=== PATIENT | male | born 1970 | race Caucasian/White ===

== ENCOUNTER 2016-06-10 09:52 | Inpatient (IN) | payer OTHER ==
[2016-06-10 10:49] VITALS: BMI 22.1
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
[2016-06-10] MEDS ORDERED: MAG HYDROX/AL HYDROX/SIMETH 30 ML UNIT-DOSE CUP PO PRN (15:21)
[2016-06-10] MEDS ORDERED: MENTHOL/PHENOL 1 EACH UD MM PRN (15:21)
[2016-06-10] MEDS ORDERED: P-EPHED 60MG/TRIPROLIDI 2.5MG TABLET PO PRN (15:21)
[2016-06-10] MEDS ORDERED: MAGNESIUM CITRATE 300 ML BOTTLE PO PRN (15:21)
[2016-06-10] MEDS ORDERED: hydrOXYzine PAMOATE 50 MG CAPSULE (FP) PO PRN (15:21)
[2016-06-10] MEDS ORDERED: MAGNESIUM HYDROX 2400MG/30ML ORAL SUSPENSION 30 ML CUP PO PRN (15:21)
[2016-06-10] MEDS ORDERED: NICOTINE POLACRILEX 4 MG GUM BC PRN (15:21)
[2016-06-10] MEDS ORDERED: ACETAMINOPHEN 325 MG TABLET (FP) PO PRN (15:21)
[2016-06-10] MEDS ORDERED: diphenhydrAMINE HCL 50 MG CAPSULE PO PRN (15:21)
[2016-06-10] MEDS ORDERED: IBUPROFEN 400 MG TABLET (FP) PO PRN (15:21)
[2016-06-10] MEDS ORDERED: LOPERAMIDE HCL 2 MG CAPSULE PO PRN (15:21)
[2016-06-10] MEDS ORDERED: guaiFENesin/D-METHORPHAN HB 10 ML UNIT-DOSE CUPS PO PRN (15:21)
[2016-06-10] MEDS ORDERED: chlordiazePOXIDE HCL 25 MG CAPSULE PO ONE (15:48)
[2016-06-10 17:44] LABS: URINE APPEARANCE CLEAR; URINE BILIRUBIN NEGATIVE (NEGATIVE); URINE BLOOD NEGATIVE (NEGATIVE); URINE COLOR AMBER; URINE GLUCOSE (UA) NEGATIVE (NEGATIVE); URINE KETONE TRACE (NEGATIVE); URINE LEUK ESTERASE NEGATIVE (NEGATIVE); URINE NITRITE NEGATIVE (NEGATIVE); URINE PROTEIN NEGATIVE (NEGATIVE); URINE UROBILINOGEN 2.0 E.U/dl E.U./dl (0.2-1.0)
[2016-06-10] MEDS: chlordiazePOXIDE HCL 25 MG CAPSULE PO SCH ×2 (18:24→22:24)
[2016-06-10] MEDS: NICOTINE 21 MG/24 HOURS TOPICAL PATCH TD SCH (18:26)
[2016-06-10] MEDS: THIAMINE HCL 100 MG TABLET (FP) PO SCH (22:23)
[2016-06-10] MEDS: BACITRACIN 0.9 GM PACKET TP SCH (22:23)
[2016-06-11] MEDS ORDERED: METHADONE HCL 10 MG TABLET ONE (05:16)
[2016-06-11] MEDS ORDERED: METHADONE HCL 40 MG DISPERSABLE TABLET ONE (05:17)
[2016-06-11] MEDS ORDERED: METHADONE HCL 40 MG DISPERSABLE TABLET PO SCH (06:00)
[2016-06-11] MEDS: METHADONE 40 MG, METHADONE 30 MG PO SCH (06:22)
[2016-06-11] MEDS: chlordiazePOXIDE HCL 25 MG CAPSULE PO SCH ×4 (06:22→22:24)
[2016-06-11] MEDS: chlordiazePOXIDE HCL 25 MG CAPSULE PO PRN ×2 (08:40→20:02)
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
[2016-06-11] MEDS: BACITRACIN 0.9 GM PACKET TP SCH ×2 (10:23→22:24)
[2016-06-11] MEDS: PRENATAL VITAMINS W/ FOLIC ACID TABLET (FP) PO SCH (10:23)
[2016-06-11] MEDS: NICOTINE 21 MG/24 HOURS TOPICAL PATCH TD SCH (10:24)
[2016-06-11] MEDS ORDERED: ZOLPIDEM TARTRATE 5 MG TABLET PO PRN (11:20)
--- NOTE | 2016-06-11 11:20 | PN ---
[facility] CIWA - CIWA Score Nausea/Vomitin Muscle Tremors: 4-Moderate,w/Arms Extend Anxiety: 4-Mod. Anxious/Guarded Agitation: 4-Moderately Restless Orientation: 0-Oriented Tacttile Disturbances: 1-Very Mild Itch/Numbness Auditory Disturbances: 0-None Visual Disturbances: 0-None Headache: 1-Very Mild BHS Progress Note (SOAP) Subjective: nausea, sweats, interrupted sleep, anxiety, tremors Objective: 06/11/16 11:19 Vital Signs - 8 hr 06/11/16 06/11/16 03:30 09:46 Temperature 95.3 F L Pulse Rate 52 L Respiratory 18 18 Rate Blood Pressure 131/84 Laboratory Tests 06/10/16 14:00 Urine Color Sandra Urine Appearance Clear Urine pH 5.0 Ur Specific [place] 1.025 Urine Protein Negative Urine Glucose (UA) Negative Urine Ketones Trace H Urine Blood Negative Urine Nitrite Negative Urine Bilirubin Negative Urine Urobilinogen 2.0 e.u/dl Ur Leukocyte Esterase Negative labs still pending Assessment: 06/11/16 11:20 withdrawal sx Plan: cont detox, fluids, checklabs when available ambien for sleep ans requested by patient
[2016-06-11 11:25] LABS: MCH 29.5 pg (25.7-33.7); MCHC 34.1 g/dl (32.0-35.9); MEAN CELL VOLUME 86.7 fl (80-96); MEAN PLT VOLUME 8.4 fl (7.5-11.1); PLATELET COUNT 261 K/MM3 (134-434); WHITE BLOOD COUNT 4.6 K/mm3 (4.0-10.0)
--- NOTE | 2016-06-11 11:25 | EKG ---
Test Reason : Blood Pressure : / mmHG Vent. Rate : 041 BPM Atrial Rate : 041 BPM P-R Int : 212 ms QRS Dur : 086 ms QT Int : 504 ms P-R-T Axes : 053 069 054 degrees QTc Int : 415 ms MARKED SINUS BRADYCARDIA WITH 1ST DEGREE A-V BLOCK CANNOT RULE OUT ANTERIOR INFARCT , AGE UNDETERMINED ABNORMAL ECG WHEN COMPARED WITH ECG OF 30-MAR-2016 10:00, NONSPECIFIC T WAVE ABNORMALITY NOW EVIDENT IN ANTERIOR LEADS Confirmed by SALEEM STEVENS MD ([id number]) on 06/11/2016 11:25:20 AM Referred By: Confirmed By:SALEEM STEVENS MD
[2016-06-11 12:05] LABS: HIV 1 & 2 AB NEGATIVE; HIV 1 AGp24 NEGATIVE
[2016-06-11 14:51] LABS: ALBUMIN 2.9 g/dl (3.4-5.0); ALK PHOS 70 U/L (45-117); ANION GAP 6 (8-16); BILIRUBIN,TOTAL 0.2 mg/dL (0.2-1.0); CALCIUM 8.2 mg/dL (8.5-10.1); CO2 30 mmol/L (21-32); COCKROFT - GAULT 82.47; CREATININE 1.1 mg/dL (0.7-1.3); GLUCOSE,RANDOM 90 mg/dL (74-106); SGOT/AST 21 U/L (15-37); SGPT/ALT 28 U/L (12-78); TOT PROT 6.6 g/dl (6.4-8.2)
[2016-06-11] MEDS: THIAMINE HCL 100 MG TABLET (FP) PO SCH (22:24)
[2016-06-11] MEDS: ZOLPIDEM TARTRATE 10 MG TABLET (PARK CARE ONLY) PO PRN (22:24)
[2016-06-12] MEDS: chlordiazePOXIDE HCL 25 MG CAPSULE PO SCH ×2 (05:15→10:02)
[2016-06-12] MEDS ORDERED: METHADONE HCL 40 MG DISPERSABLE TABLET ONE (05:15)
[2016-06-12] MEDS: METHADONE 40 MG, METHADONE 30 MG PO SCH (05:15)
[2016-06-12] MEDS ORDERED: METHADONE HCL 10 MG TABLET ONE (05:15)
[2016-06-12] MEDS: chlordiazePOXIDE HCL 25 MG CAPSULE PO PRN ×2 (08:43→13:04)
[2016-06-12] MEDS: BACITRACIN 0.9 GM PACKET TP SCH ×2 (10:02→22:21)
[2016-06-12] MEDS: NICOTINE 21 MG/24 HOURS TOPICAL PATCH TD SCH (10:02)
[2016-06-12] MEDS: PRENATAL VITAMINS W/ FOLIC ACID TABLET (FP) PO SCH (10:02)
--- NOTE | 2016-06-12 12:31 | PN ---
S CIWA - CIWA Score Nausea/Vomitin Muscle Tremors: 3 Anxiety: 3 Agitation: 3 Paroxysmal Sweats: 3 Orientation: 0-Oriented Tacttile Disturbances: 1-Very Mild Itch/Numbness Auditory Disturbances: 0-None Visual Disturbances: 0-None Headache: 2-Mild CIWA-Ar Total Score: 17 BHS Progress Note (SOAP) Subjective: sweats, shakes,joint and back pain Objective: 06/12/16 12:30 Vital Signs - 8 hr 06/12/16 06:40 Temperature 95.9 F L Pulse Rate 76 Respiratory 18 Rate Blood Pressure 107/63 Laboratory Last Values WBC 4.6 K/mm3 (4.0-10.0) D 06/11/16 07:00 RBC 4.36 M/mm3 (4.00-5.60) D 06/11/16 07:00 Hgb 12.9 GM/dL (11.7-16.9) D 06/11/16 07:00 Hct 37.8 % (35.4-49) D 06/11/16 07:00 MCV 86.7 fl (80-96) 06/11/16 07:00 MCHC 34.1 g/dl (32.0-35.9) 06/11/16 07:00 RDW 14.0 % (11.9-15.9) D 06/11/16 07:00 Plt Count 261 K/MM3 (134-434) 06/11/16 07:00 MPV 8.4 fl (7.5-11.1) 06/11/16 07:00 Sodium 141 mmol/L (136-145) 06/11/16 07:00 Potassium 3.9 mmol/L (3.5-5.1) 06/11/16 07:00 Chloride 105 mmol/L (98-107) 06/11/16 07:00 Carbon Dioxide 30 mmol/L (21-32) 06/11/16 07:00 Anion Gap 6 (8-16) L 06/11/16 07:00 BUN 14 mg/dL (7-18) D 06/11/16 07:00 Creatinine 1.1 mg/dL (0.7-1.3) 06/11/16 07:00 Creat Clearance w eGFR > 60 (>60) 06/11/16 07:00 Random Glucose 90 mg/dL (74-106) 06/11/16 07:00 Calcium 8.2 mg/dL (8.5-10.1) L 06/11/16 07:00 Total Bilirubin 0.2 mg/dL (0.2-1.0) D 06/11/16 07:00 AST 21 U/L (15-37) D 06/11/16 07:00 ALT 28 U/L (12-78) D 06/11/16 07:00 Alkaline Phosphatase 70 U/L (45-117) D 06/11/16 07:00 Total Protein 6.6 g/dl (6.4-8.2) D 06/11/16 07:00 Albumin 2.9 g/dl (3.4-5.0) L D 06/11/16 07:00 Urine Color Sandra 06/10/16 14:00 Urine Appearance Clear 06/10/16 14:00 Urine pH 5.0 (5.0-8.0) 06/10/16 14:00 Ur Specific [place] 1.025 (1.001-1.035) 06/10/16 14:00 Urine Protein Negative (NEGATIVE) 06/10/16 14:00 Urine Glucose (UA) Negative (NEGATIVE) 06/10/16 14:00 Urine Ketones Trace (NEGATIVE) H 06/10/16 14:00 Urine Blood Negative (NEGATIVE) 06/10/16 14:00 Urine Nitrite Negative (NEGATIVE) 06/10/16 14:00 Urine Bilirubin Negative (NEGATIVE) 06/10/16 14:00 Urine Urobilinogen 2.0 e.u/dl E.U./dl (0.2-1.0) 06/10/16 14:00 Ur Leukocyte Esterase Negative (NEGATIVE) 06/10/16 14:00 RPR Titer Nonreactive (NONREACTIVE) 06/11/16 07:00 HIV 1&2 Antibody Screen Negative 06/10/16 07:00 HIV P24 Antigen Negative 06/10/16 07:00 labs noted Assessment: 06/12/16 12:30 withdrawal sx Plan: continue detox
[2016-06-12] MEDS: chlordiazePOXIDE 5 MG CAPSULE PO SCH ×2 (17:39→22:21)
[2016-06-12] MEDS: THIAMINE HCL 100 MG TABLET (FP) PO SCH (22:21)
[2016-06-12] MEDS: ZOLPIDEM TARTRATE 10 MG TABLET (PARK CARE ONLY) PO PRN (22:21)
[2016-06-13] MEDS ORDERED: METHADONE HCL 10 MG TABLET ONE (03:06)
[2016-06-13] MEDS ORDERED: METHADONE HCL 40 MG DISPERSABLE TABLET ONE (03:06)
[2016-06-13] MEDS: METHADONE 40 MG, METHADONE 30 MG PO SCH (05:46)
[2016-06-13] MEDS: chlordiazePOXIDE 5 MG CAPSULE PO SCH ×2 (05:46→11:32)
[2016-06-13] MEDS: chlordiazePOXIDE HCL 25 MG CAPSULE PO PRN (09:13)
[2016-06-13] MEDS: PRENATAL VITAMINS W/ FOLIC ACID TABLET (FP) PO SCH (09:33)
[2016-06-13] MEDS: NICOTINE 21 MG/24 HOURS TOPICAL PATCH TD SCH (09:34)
[2016-06-13] MEDS: BACITRACIN 0.9 GM PACKET TP SCH ×2 (09:35→23:06)
--- NOTE | 2016-06-13 13:39 | PN ---
BHS Progress Note (SOAP) Subjective: Agitated, irritable, restless, anxious, diarrhea, stomach ache Objective: 06/13/16 13:34 Last Vital Signs Temp Pulse Resp BP Pulse Ox 96.4 F L 48 L 18 116/71 06/13/16 13:08 06/13/16 13:08 06/13/16 13:08 06/13/16 13:08 Laboratory Tests 06/10/16 06/10/16 06/11/16 07:00 14:00 07:00 WBC 4.6 D RBC 4.36 D Hgb 12.9 D Hct 37.8 D MCV 86.7 MCHC 34.1 RDW 14.0 D Plt Count 261 MPV 8.4 Sodium Potassium Chloride Carbon Dioxide Anion Gap BUN Creatinine Creat Clearance w eGFR Random Glucose Calcium Total Bilirubin AST ALT Alkaline Phosphatase Total Protein Albumin Urine Color Sandra Urine Appearance Clear Urine pH 5.0 Ur Specific [place] 1.025 Urine Protein Negative Urine Glucose (UA) Negative Urine Ketones Trace H Urine Blood Negative Urine Nitrite Negative Urine Bilirubin Negative Urine Urobilinogen 2.0 e.u/dl Ur Leukocyte Esterase Negative RPR Titer HIV 1&2 Antibody Screen Negative HIV P24 Antigen Negative 06/11/16 06/11/16 07:00 07:00 WBC RBC Hgb Hct MCV MCHC RDW Plt Count MPV Sodium 141 Potassium 3.9 Chloride 105 Carbon Dioxide 30 Anion Gap 6 L BUN 14 D Creatinine 1.1 Creat Clearance w eGFR > 60 Random Glucose 90 Calcium 8.2 L Total Bilirubin 0.2 D AST 21 D ALT 28 D Alkaline Phosphatase 70 D Total Protein 6.6 D Albumin 2.9 L D Urine Color Urine Appearance Urine pH Ur Specific [place] Urine Protein Urine Glucose (UA) Urine Ketones Urine Blood Urine Nitrite Urine Bilirubin Urine Urobilinogen Ur Leukocyte Esterase RPR Titer Nonreactive HIV 1&2 Antibody Screen HIV P24 Antigen Labs noted Assessment: 06/13/16 13:35 Withdrawal symptoms Plan: Continue detox
[2016-06-13] MEDS: chlordiazePOXIDE HCL 10 MG CAPSULE PO SCH ×2 (17:24→23:09)
[2016-06-13] MEDS: THIAMINE HCL 100 MG TABLET (FP) PO SCH (23:08)
[2016-06-14] MEDS ORDERED: METHADONE HCL 10 MG TABLET ONE (04:05)
[2016-06-14] MEDS ORDERED: METHADONE HCL 40 MG DISPERSABLE TABLET ONE (04:06)
[2016-06-14] MEDS: METHADONE 40 MG, METHADONE 30 MG PO SCH (05:34)
[2016-06-14] MEDS: chlordiazePOXIDE HCL 10 MG CAPSULE PO SCH (05:35)
[2016-06-14 06:12] VITALS: BP 95/56; PULSE 53; TEMP 96.3
--- NOTE | 2016-06-15 13:18 | DS ---
[facility] Detox Discharge Summary Admission Date: 06/10/16 Discharge Date: 06/14/16 - History Present History: Alcohol Dependence, Cannabis Dependence, Cocaine Dependence, Sedative Dependence Pertinent Past History: Hep C - Physical Exam Results Vital Signs: Vital Signs Temperature 96.3 F L 06/14/16 06:11 Pulse Rate 53 L 06/14/16 06:11 Respiratory Rate 16 06/14/16 06:11 Blood Pressure 95/56 06/14/16 06:11 O2 Sat by Pulse Oximetry (%) Pertinent Admission Physical Exam Findings: Withdrawal sx. Laboratory Last Values WBC 4.6 K/mm3 (4.0-10.0) D 06/11/16 07:00 RBC 4.36 M/mm3 (4.00-5.60) D 06/11/16 07:00 Hgb 12.9 GM/dL (11.7-16.9) D 06/11/16 07:00 Hct 37.8 % (35.4-49) D 06/11/16 07:00 MCV 86.7 fl (80-96) 06/11/16 07:00 MCHC 34.1 g/dl (32.0-35.9) 06/11/16 07:00 RDW 14.0 % (11.9-15.9) D 06/11/16 07:00 Plt Count 261 K/MM3 (134-434) 06/11/16 07:00 MPV 8.4 fl (7.5-11.1) 06/11/16 07:00 Sodium 141 mmol/L (136-145) 06/11/16 07:00 Potassium 3.9 mmol/L (3.5-5.1) 06/11/16 07:00 Chloride 105 mmol/L (98-107) 06/11/16 07:00 Carbon Dioxide 30 mmol/L (21-32) 06/11/16 07:00 Anion Gap 6 (8-16) L 06/11/16 07:00 BUN 14 mg/dL (7-18) D 06/11/16 07:00 Creatinine 1.1 mg/dL (0.7-1.3) 06/11/16 07:00 Creat Clearance w eGFR > 60 (>60) 06/11/16 07:00 Random Glucose 90 mg/dL (74-106) 06/11/16 07:00 Calcium 8.2 mg/dL (8.5-10.1) L 06/11/16 07:00 Total Bilirubin 0.2 mg/dL (0.2-1.0) D 06/11/16 07:00 AST 21 U/L (15-37) D 06/11/16 07:00 ALT 28 U/L (12-78) D 06/11/16 07:00 Alkaline Phosphatase 70 U/L (45-117) D 06/11/16 07:00 Total Protein 6.6 g/dl (6.4-8.2) D 06/11/16 07:00 Albumin 2.9 g/dl (3.4-5.0) L D 06/11/16 07:00 Urine Color Sandra 06/10/16 14:00 Urine Appearance Clear 06/10/16 14:00 Urine pH 5.0 (5.0-8.0) 06/10/16 14:00 Ur Specific [place] 1.025 (1.001-1.035) 06/10/16 14:00 Urine Protein Negative (NEGATIVE) 06/10/16 14:00 Urine Glucose (UA) Negative (NEGATIVE) 06/10/16 14:00 Urine Ketones Trace (NEGATIVE) H 06/10/16 14:00 Urine Blood Negative (NEGATIVE) 06/10/16 14:00 Urine Nitrite Negative (NEGATIVE) 06/10/16 14:00 Urine Bilirubin Negative (NEGATIVE) 06/10/16 14:00 Urine Urobilinogen 2.0 e.u/dl E.U./dl (0.2-1.0) 06/10/16 14:00 Ur Leukocyte Esterase Negative (NEGATIVE) 06/10/16 14:00 RPR Titer Nonreactive (NONREACTIVE) 06/11/16 07:00 HIV 1&2 Antibody Screen Negative 06/10/16 07:00 HIV P24 Antigen Negative 06/10/16 07:00 labs noted - Treatment Hospital Course: Detox Protocol Followed, Detoxed Safely, Responded well, Discharged Condition Good, Rehab Referral Accepted Patient has Accepted a Rehab Referral to: [facility] - Medication Discharge Medications: Ambulatory Orders NK [No Known Home Medication] 06/10/16 - Diagnosis (1) Alcohol dependence with uncomplicated withdrawal Status: Acute (2) Cocaine dependence, uncomplicated Status: Acute (3) Drug-induced mood disorder Status: Acute (4) Opioid dependence on agonist therapy Status: Acute (5) Sedative, hypnotic or anxiolytic dependence with withdrawal, uncomplicated Status: Acute - AMA Did Patient Leave Against Medical Advice: No
== END 2016-06-14 09:21 | disposition home or self-care (01) | DRG 773 ==
LOC: YASAS 09:52 → Y3N 12:21
PROVIDERS: ADMIT Internal Medicine; ATTEND Internal Medicine
PROC: HZ2ZZZZ Detoxification Services for Substance Abuse Treatment (ICD-10-PCS; principal; 2016-06-10)
DX: F10.230 Alcohol dependence with withdrawal, uncomplicated (principal); F13.230 Sedative, hypnotic or anxiolytic dependence with withdrawal, uncomplicated; F11.20 Opioid dependence, uncomplicated; F14.20 Cocaine dependence, uncomplicated; F12.20 Cannabis dependence, uncomplicated; F19.24 Other psychoactive substance dependence with psychoactive substance-induced mood disorder; F17.210 Nicotine dependence, cigarettes, uncomplicated; D64.9 Anemia, unspecified; B18.2 Chronic viral hepatitis C; M92.52 Juvenile osteochondrosis of tibia tubercle; M92.51 Juvenile osteochondrosis of proximal tibia; G47.00 Insomnia, unspecified; S89.92XD Unspecified injury of left lower leg, subsequent encounter; V03.10XD Pedestrian on foot injured in collision with car, pick-up truck or van in traffic accident, subsequent encounter
CPT/HCPCS: 36415; 71020-TC; 80053; 81003; 85027; 86593; 87389; 93005; 93010

== ENCOUNTER 2016-09-10 08:29 | Inpatient (IN) | payer OTHER ==
[2016-09-10 11:35] VITALS: BMI 25.1
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
[2016-09-10] MEDS ORDERED: hydrOXYzine PAMOATE 50 MG CAPSULE (FP) PO PRN (12:40)
[2016-09-10] MEDS ORDERED: P-EPHED 60MG/TRIPROLIDI 2.5MG TABLET PO PRN (12:40)
[2016-09-10] MEDS ORDERED: ACETAMINOPHEN 325 MG TABLET (FP) PO PRN (12:40)
[2016-09-10] MEDS ORDERED: MAGNESIUM CITRATE 300 ML BOTTLE PO PRN (12:40)
[2016-09-10] MEDS ORDERED: MENTHOL/PHENOL 1 EACH UD MM PRN (12:40)
[2016-09-10] MEDS ORDERED: MAGNESIUM HYDROX 2400MG/30ML ORAL SUSPENSION 30 ML CUP PO PRN (12:40)
[2016-09-10] MEDS ORDERED: MAG HYDROX/AL HYDROX/SIMETH 30 ML UNIT-DOSE CUP PO PRN (12:40)
[2016-09-10] MEDS ORDERED: guaiFENesin/D-METHORPHAN HB 10 ML UNIT-DOSE CUPS PO PRN (12:40)
[2016-09-10] MEDS ORDERED: chlordiazePOXIDE HCL 25 MG CAPSULE PO ONE (13:45)
[2016-09-10] MEDS ORDERED: METHADONE HCL 10 MG TABLET (FOR DETOX USE ONLY) PO ONE ×2 (13:45→23:00)
[2016-09-10] MEDS: chlordiazePOXIDE HCL 25 MG CAPSULE PO SCH ×2 (17:24→22:03)
[2016-09-10 17:59] LABS: URINE APPEARANCE CLEAR; URINE BILIRUBIN NEGATIVE (NEGATIVE); URINE BLOOD NEGATIVE (NEGATIVE); URINE COLOR DKYELLOW; URINE GLUCOSE (UA) NEGATIVE (NEGATIVE); URINE KETONE 1+ (NEGATIVE); URINE LEUK ESTERASE NEGATIVE (NEGATIVE); URINE NITRITE NEGATIVE (NEGATIVE); URINE PROTEIN NEGATIVE (NEGATIVE)
[2016-09-10] MEDS: cloNIDine HCL 0.1 MG TABLET PO SCH (22:03)
[2016-09-10] MEDS: CYCLOBENZAPRINE HCL 10 MG TABLET (FP) PO PRN (22:04)
[2016-09-10] MEDS: diphenhydrAMINE HCL 50 MG CAPSULE PO PRN (22:05)
[2016-09-10] MEDS: THIAMINE HCL 100 MG TABLET (FP) PO SCH (23:13)
[2016-09-11] MEDS: chlordiazePOXIDE HCL 25 MG CAPSULE PO SCH ×4 (05:03→22:17)
[2016-09-11] MEDS: chlordiazePOXIDE HCL 25 MG CAPSULE PO PRN ×2 (08:53→12:48)
[2016-09-11] MEDS: LOPERAMIDE HCL 2 MG CAPSULE PO PRN (08:54)
[2016-09-11] MEDS ORDERED: METHADONE HCL 10 MG TABLET (FOR DETOX USE ONLY) PO SCH (10:00)
--- NOTE | 2016-09-11 10:15 | PN ---
[facility] CIWA - CIWA Score Nausea/Vomitin Muscle Tremors: 3 Anxiety: 3 Agitation: 3 Paroxysmal Sweats: 1-Minimal Palms Moist Orientation: 0-Oriented Tacttile Disturbances: 1-Very Mild Itch/Numbness Auditory Disturbances: 1-Very Mild Visual Disturbances: 1-Very Mild Sensitivity Headache: 2-Mild CIWA-Ar Total Score: 18 BHS COWS - Scale Resting Pulse: 0= [place] 80 or Below Sweatin= Chills/Flushing Restless Observation: 3= Extraneous Movement Pupil Size: 1= Pupils >than Normal Bone or Joint Aches: 2= Severe Diffuse Aches Runny Nose/ Eye Tearin= Runny Nose/Eyes GI Upset > 30mins: 3= Vomiting/Diarrhea Tremor Observation of Outstretched Hands: 2= Slight Tremor Visible Yawning Observation: 1= 1-2x During Session Anxiety or Irritability: 2=Irritable/Anxious Goose Flesh Skin: 0=Smooth Skin COWS Score: 17 S Progress Note (SOAP) Subjective: alert,irritable,anxious,interrupted sleep,tremor,pain in the body and back Objective: 09/11/16 10:13 Vital Signs Temperature 98.6 F 09/11/16 09:41 Pulse Rate 51 L 09/11/16 09:41 Respiratory Rate 18 09/11/16 09:41 Blood Pressure 102/64 09/11/16 09:41 O2 Sat by Pulse Oximetry (%) ekg sinus bradycardia 47/min no chest pain,no sob,no dizziness Laboratory Last Values Urine Color Dkyellow 09/10/16 15:00 Urine Appearance Clear 09/10/16 15:00 Urine pH 5.0 (5.0-8.0) 09/10/16 15:00 Ur Specific [place] 1.025 (1.005-1.025) 09/10/16 15:00 Urine Protein Negative (NEGATIVE) 09/10/16 15:00 Urine Glucose (UA) Negative (NEGATIVE) 09/10/16 15:00 Urine Ketones 1+ (NEGATIVE) H 09/10/16 15:00 Urine Blood Negative (NEGATIVE) 09/10/16 15:00 Urine Nitrite Negative (NEGATIVE) 09/10/16 15:00 Urine Bilirubin Negative (NEGATIVE) 09/10/16 15:00 Urine Urobilinogen 2.0 mg/dL (0.2-1.0) 09/10/16 15:00 Ur Leukocyte Esterase Negative (NEGATIVE) 09/10/16 15:00 labs pending Assessment: 09/11/16 10:14 withdrawal symptom Plan: continue detox
[2016-09-11] MEDS: PRENATAL VITAMINS W/ FOLIC ACID TABLET (FP) PO SCH (10:17)
[2016-09-11] MEDS: CYCLOBENZAPRINE HCL 10 MG TABLET (FP) PO PRN (10:17)
[2016-09-11] MEDS: cloNIDine HCL 0.1 MG TABLET PO SCH ×2 (10:17→22:17)
[2016-09-11 10:56] LABS: ALBUMIN 3.5 g/dl (3.4-5.0); ALK PHOS 82 U/L (45-117); ANION GAP 8 (8-16); BILIRUBIN,TOTAL 0.5 mg/dL (0.2-1.0); CALCIUM 9.3 mg/dL (8.5-10.1); CO2 28 mmol/L (21-32); CREATININE 1.3 mg/dL (0.7-1.3); GLUCOSE,RANDOM 83 mg/dL (74-106); SGOT/AST 41 U/L (15-37); SGPT/ALT 42 U/L (12-78); TOT PROT 8.5 g/dl (6.4-8.2)
[2016-09-11 11:05] LABS: MCH 29.3 pg (25.7-33.7); MCHC 33.6 g/dl (32.0-35.9); MEAN CELL VOLUME 87.2 fl (80-96); MEAN PLT VOLUME 8.9 fl (7.5-11.1); PLATELET COUNT 249 K/MM3 (134-434); RDW 13.2 % (11.9-15.9); WHITE BLOOD COUNT 6.5 K/mm3 (4.0-10.0)
--- NOTE | 2016-09-11 14:15 | CONSULT ---
[facility] Psychiatric Consult - Data Date of interview: 09/11/16 Admission source: [facility] Identifying data: Readmission to [facility] for this 46 y/o male,from [place] ancestry,seeking detox treatment on for heroin,cocaine, benzodiazepine and alcohol dependence.Patient is without children, currently undomiciled,unemployed and reportedly deprived of any source of income. Substance Abuse History: Patient endorses an extensive history of substance abuse : alcohol (age 13 - consumes 2 pints of vodka/beer daily),heroin since age 19 (IV route),xanax since age 21 and cocaine.Used these substances on . 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 Psychiatric History: History of multiple psychiatric hospitalizations ( [facility]) .Mr Elizabeth declares that he has never taken any psychotropic medications with the exception of methadone.Used to be on methadone maintenance at [facility]-MMTP = 60 mg/day.Lost to follow up for months.Patient argues that he does not have a psychiatric illness.No history of suicide attempts. Physical/Sexual Abuse/Trauma History: Patient denies. Additional Comment: Urine Drug Screen Results: JUNE-Cocaine, OPI-Opiates, BZO- Benzodiazepines.Noted. Mental Status Exam - Mental Status Exam Alert and Oriented to: Time, Place, Person Cognitive Function: Grossly Intact Patient Appearance: Unkempt, Disheveled Mood: Nervous, Anxious Affect: Mood Congruent Patient Behavior: Fatigued, Talkative, Cooperative Speech Pattern: Clear Voice Loudness: Normal Thought Process: Goal Oriented Thought Disorder: Not Present Hallucinations: Denies Suicidal Ideation: Denies Homicidal Ideation: Denies Insight/Judgement: Poor Sleep: Poorly, Difficulty falling asleep Appetite: Good Muscle strength/Tone: Normal Gait/Station: Normal Psychiatric Findings - Problem List ([place] 1, 2,3) (1) Opioid dependence with withdrawal Current Visit: Yes Status: Acute (2) Alcohol dependence with uncomplicated withdrawal Current Visit: Yes Status: Acute (3) Cocaine dependence Current Visit: Yes Status: Acute (4) Uncomplicated sedative, hypnotic or anxiolytic withdrawal Current Visit: Yes Status: Acute (5) Nicotine dependence Current Visit: Yes Status: Acute Qualifiers: Nicotine product type: cigarettes Substance use status: uncomplicated Qualified Code(s): F17.210 - Nicotine dependence, cigarettes, uncomplicated Comment: Continue Tobacco use when he is able to buy or borough cigarettes (6) Drug-induced mood disorder Current Visit: Yes Status: Acute (7) Hep C w/o coma, chronic Current Visit: Yes Status: Chronic (8) Substance-induced sleep disorder Current Visit: Yes Status: Chronic - Initial Treatment Plan Initial Treatment Plan: Psychoeducation.Previous records are revisited.Detoxification.Sleep hygiene discussed with patient.Observation.
[2016-09-11] MEDS: THIAMINE HCL 100 MG TABLET (FP) PO SCH (22:16)
[2016-09-12] MEDS: chlordiazePOXIDE HCL 25 MG CAPSULE PO SCH ×2 (05:53→11:01)
--- NOTE | 2016-09-12 09:52 | PN ---
[facility] CIWA - CIWA Score Nausea/Vomitin Muscle Tremors: 3 Anxiety: 3 Agitation: 2 Paroxysmal Sweats: 1-Minimal Palms Moist Orientation: 0-Oriented Tacttile Disturbances: 1-Very Mild Itch/Numbness Auditory Disturbances: 1-Very Mild Visual Disturbances: 1-Very Mild Sensitivity Headache: 2-Mild CIWA-Ar Total Score: 17 BHS COWS - Scale Resting Pulse: 0= [place] 80 or Below Sweatin= Chills/Flushing Restless Observation: 3= Extraneous Movement Pupil Size: 1= Pupils >than Normal Bone or Joint Aches: 2= Severe Diffuse Aches Runny Nose/ Eye Tearin= Runny Nose/Eyes GI Upset > 30mins: 2= Nausea/Diarrhea Tremor Observation of Outstretched Hands: 2= Slight Tremor Visible Yawning Observation: 1= 1-2x During Session Anxiety or Irritability: 2=Irritable/Anxious Goose Flesh Skin: 0=Smooth Skin COWS Score: 16 S Progress Note (SOAP) Subjective: ALERT,IRRITABLE,ANXIOUS,INTERRUPTED SLEEP,PAIN IN THE BODY AND BACK Objective: 09/12/16 09:49 Vital Signs Temperature 97.3 F L 09/12/16 06:39 Pulse Rate 48 L 09/12/16 06:39 Respiratory Rate 16 09/12/16 06:39 Blood Pressure 112/65 09/12/16 06:39 O2 Sat by Pulse Oximetry (%) EKG SINUS BRADYCARDIA 47 NO CHEST PAIN,NO SOB,NO DIZZINESS Laboratory Last Values WBC 6.5 K/mm3 (4.0-10.0) D 09/11/16 06:00 RBC 5.28 M/mm3 (4.00-5.60) D 09/11/16 06:00 Hgb 15.5 GM/dL (11.7-16.9) D 09/11/16 06:00 Hct 46.0 % (35.4-49) D 09/11/16 06:00 MCV 87.2 fl (80-96) 09/11/16 06:00 MCH 29.3 pg (25.7-33.7) 09/11/16 06:00 MCHC 33.6 g/dl (32.0-35.9) 09/11/16 06:00 RDW 13.2 % (11.9-15.9) 09/11/16 06:00 Plt Count 249 K/MM3 (134-434) 09/11/16 06:00 MPV 8.9 fl (7.5-11.1) 09/11/16 06:00 Sodium 140 mmol/L (136-145) 09/11/16 06:00 Potassium 4.1 mmol/L (3.5-5.1) 09/11/16 06:00 Chloride 104 mmol/L (98-107) 09/11/16 06:00 Carbon Dioxide 28 mmol/L (21-32) 09/11/16 06:00 Anion Gap 8 (8-16) 09/11/16 06:00 BUN 18 mg/dL (7-18) D 09/11/16 06:00 Creatinine 1.3 mg/dL (0.7-1.3) 09/11/16 06:00 Creat Clearance w eGFR 59.97 (>60) 09/11/16 06:00 Random Glucose 83 mg/dL (74-106) 09/11/16 06:00 Calcium 9.3 mg/dL (8.5-10.1) 09/11/16 06:00 Total Bilirubin 0.5 mg/dL (0.2-1.0) D 09/11/16 06:00 AST 41 U/L (15-37) H D 09/11/16 06:00 ALT 42 U/L (12-78) D 09/11/16 06:00 Alkaline Phosphatase 82 U/L (45-117) 09/11/16 06:00 Total Protein 8.5 g/dl (6.4-8.2) H D 09/11/16 06:00 Albumin 3.5 g/dl (3.4-5.0) D 09/11/16 06:00 Urine Color Dkyellow 09/10/16 15:00 Urine Appearance Clear 09/10/16 15:00 Urine pH 5.0 (5.0-8.0) 09/10/16 15:00 Ur Specific [place] 1.025 (1.005-1.025) 09/10/16 15:00 Urine Protein Negative (NEGATIVE) 09/10/16 15:00 Urine Glucose (UA) Negative (NEGATIVE) 09/10/16 15:00 Urine Ketones 1+ (NEGATIVE) H 09/10/16 15:00 Urine Blood Negative (NEGATIVE) 09/10/16 15:00 Urine Nitrite Negative (NEGATIVE) 09/10/16 15:00 Urine Bilirubin Negative (NEGATIVE) 09/10/16 15:00 Urine Urobilinogen 2.0 mg/dL (0.2-1.0) 09/10/16 15:00 Ur Leukocyte Esterase Negative (NEGATIVE) 09/10/16 15:00 RPR Titer Nonreactive (NONREACTIVE) 09/11/16 06:00 Assessment: 09/12/16 09:51 WITHDRAWAL SYMPTOM Plan: CONTINUE DETOX
[2016-09-12] MEDS: PRENATAL VITAMINS W/ FOLIC ACID TABLET (FP) PO SCH (11:00)
[2016-09-12] MEDS: METHADONE HCL 5 MG TABLET (FOR DETOX USE ONLY) PO SCH (11:01)
[2016-09-12] MEDS: cloNIDine HCL 0.1 MG TABLET PO SCH ×2 (11:01→22:34)
[2016-09-12] MEDS: CYCLOBENZAPRINE HCL 10 MG TABLET (FP) PO PRN (11:01)
[2016-09-12] MEDS: chlordiazePOXIDE HCL 25 MG CAPSULE PO PRN (14:09)
[2016-09-12] MEDS: chlordiazePOXIDE 5 MG CAPSULE PO SCH ×2 (17:55→22:08)
[2016-09-12] MEDS: IBUPROFEN 400 MG TABLET (FP) PO PRN (22:07)
[2016-09-12] MEDS: THIAMINE HCL 100 MG TABLET (FP) PO SCH (22:08)
[2016-09-13] MEDS: chlordiazePOXIDE 5 MG CAPSULE PO SCH ×3 (06:33→10:40)
[2016-09-13] MEDS: IBUPROFEN 400 MG TABLET (FP) PO PRN ×2 (06:47→15:50)
--- NOTE | 2016-09-13 09:51 | PN ---
S Progress Note (SOAP) Subjective: ALERT,IRRITABLE,ANXIOUS,INTERRUPTED SLEEP,PAIN IN THE BODY Objective: 09/13/16 09:49 Vital Signs Temperature 97.9 F 09/13/16 06:07 Pulse Rate 60 09/13/16 06:48 Respiratory Rate 18 09/13/16 06:48 Blood Pressure 99/57 09/13/16 06:48 O2 Sat by Pulse Oximetry (%) Assessment: 09/13/16 09:50 WITHDRAWAL SYMPTOM Plan: CONTINUE DETOX
[2016-09-13] MEDS: METHADONE HCL 5 MG TABLET (FOR DETOX USE ONLY) PO SCH (10:40)
[2016-09-13] MEDS: PRENATAL VITAMINS W/ FOLIC ACID TABLET (FP) PO SCH (10:40)
[2016-09-13] MEDS: cloNIDine HCL 0.1 MG TABLET PO SCH ×2 (10:40→22:05)
--- NOTE | 2016-09-13 12:01 | EKG ---
Test Reason : Blood Pressure : / mmHG Vent. Rate : 047 BPM Atrial Rate : 047 BPM P-R Int : 184 ms QRS Dur : 088 ms QT Int : 452 ms P-R-T Axes : 065 071 061 degrees QTc Int : 400 ms SINUS BRADYCARDIA OTHERWISE NORMAL ECG WHEN COMPARED WITH ECG OF 10-JUN-2016 17:24, NONSPECIFIC T WAVE ABNORMALITY NO LONGER EVIDENT IN ANTERIOR LEADS Confirmed by SUMANTH JANG, FAVIO ([id number]) on 09/13/2016 12:01:42 PM Referred By: Jesus Bourgeois Confirmed By:FAVIO JULIO MD
[2016-09-13] MEDS: chlordiazePOXIDE HCL 10 MG CAPSULE PO SCH ×2 (17:53→22:05)
[2016-09-13] MEDS: THIAMINE HCL 100 MG TABLET (FP) PO SCH (22:05)
[2016-09-13] MEDS: LOPERAMIDE HCL 2 MG CAPSULE PO PRN (22:05)
[2016-09-14] MEDS: chlordiazePOXIDE HCL 10 MG CAPSULE PO SCH ×2 (06:14→11:14)
[2016-09-14] MEDS: LOPERAMIDE HCL 2 MG CAPSULE PO PRN ×3 (06:16→22:05)
--- NOTE | 2016-09-14 09:44 | PN ---
S Progress Note (SOAP) Subjective: ALERT,IRRITABLE,INTERRUPTED SLEEP Objective: 09/14/16 09:43 Vital Signs Temperature 96.9 F L 09/14/16 09:26 Pulse Rate 93 H 09/14/16 09:26 Respiratory Rate 20 09/14/16 09:26 Blood Pressure 101/61 09/14/16 09:26 O2 Sat by Pulse Oximetry (%) Assessment: WITHDRAWAL SYMPTOM Plan: CONTINUE DETOX,DISCHARGE IN AM
[2016-09-14] MEDS ORDERED: METHADONE HCL 10 MG TABLET (FOR DETOX USE ONLY) PO SCH (10:00)
[2016-09-14] MEDS: cloNIDine HCL 0.1 MG TABLET PO SCH ×2 (11:11→22:42)
[2016-09-14] MEDS: PRENATAL VITAMINS W/ FOLIC ACID TABLET (FP) PO SCH (11:14)
[2016-09-14] MEDS: IBUPROFEN 400 MG TABLET (FP) PO PRN ×2 (11:19→23:49)
[2016-09-14] MEDS: THIAMINE HCL 100 MG TABLET (FP) PO SCH (22:04)
[2016-09-15] MEDS: CYCLOBENZAPRINE HCL 10 MG TABLET (FP) PO PRN (00:33)
[2016-09-15] MEDS: diphenhydrAMINE HCL 50 MG CAPSULE PO PRN (00:33)
[2016-09-15] MEDS ORDERED: LIDOCAINE VISCOUS 2% ORAL/TOP 20 ML UNIT-DOSE CUP MM PRN (00:50)
[2016-09-15] MEDS ORDERED: METHADONE HCL 5 MG TABLET (FOR DETOX USE ONLY) PO SCH (06:00)
[2016-09-15 06:16] VITALS: BP 113/54; PULSE 59; TEMP 97
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
== END 2016-09-15 09:17 | disposition home or self-care (01) | DRG 773 ==
LOC: YASAS 08:29 → Y6N 11:38
PROVIDERS: ADMIT Internal Medicine Addiction Medicine; ATTEND Internal Medicine Addiction Medicine
PROC: HZ2ZZZZ Detoxification Services for Substance Abuse Treatment (ICD-10-PCS; principal; 2016-09-10)
DX: F11.23 Opioid dependence with withdrawal (principal); F13.230 Sedative, hypnotic or anxiolytic dependence with withdrawal, uncomplicated; F10.230 Alcohol dependence with withdrawal, uncomplicated; F17.210 Nicotine dependence, cigarettes, uncomplicated; B18.2 Chronic viral hepatitis C; R00.1 Bradycardia, unspecified; M92.52 Juvenile osteochondrosis of tibia tubercle; M92.51 Juvenile osteochondrosis of proximal tibia; Z87.898 Personal history of other specified conditions; Z87.438 Personal history of other diseases of male genital organs
CPT/HCPCS: 36415; 80053; 81003; 85027; 86593; 93005; 93010

== ENCOUNTER 2017-07-24 09:00 | Inpatient (IN) | payer OTHER ==
[2017-07-24 10:25] VITALS: BMI 24.7
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
[2017-07-24] MEDS ORDERED: LOPERAMIDE HCL 2 MG CAPSULE PO PRN (11:18)
[2017-07-24] MEDS ORDERED: ACETAMINOPHEN 325 MG TABLET (FP) PO PRN (11:18)
[2017-07-24] MEDS ORDERED: MENTHOL/PHENOL 1 EACH UD MM PRN (11:18)
[2017-07-24] MEDS ORDERED: IBUPROFEN 400 MG TABLET (FP) PO PRN (11:18)
[2017-07-24] MEDS ORDERED: guaiFENesin/D-METHORPHAN HB 10 ML UNIT-DOSE CUPS PO PRN (11:18)
[2017-07-24] MEDS ORDERED: MAGNESIUM HYDROX 2400MG/30ML ORAL SUSPENSION 30 ML CUP PO PRN (11:18)
[2017-07-24] MEDS ORDERED: P-EPHED 60MG/TRIPROLIDI 2.5MG TABLET PO PRN (11:18)
[2017-07-24] MEDS ORDERED: NICOTINE POLACRILEX 2 MG GUM BUC PRN (11:18)
[2017-07-24] MEDS ORDERED: MAG HYDROX/AL HYDROX/SIMETH 30 ML UNIT-DOSE CUP PO PRN (11:18)
[2017-07-24] MEDS ORDERED: MAGNESIUM CITRATE 300 ML BOTTLE PO PRN (11:18)
[2017-07-24] MEDS ORDERED: METHADONE HCL 10 MG TABLET (FOR DETOX USE ONLY) PO ONE ×2 (12:45→23:00)
[2017-07-24] MEDS ORDERED: chlordiazePOXIDE HCL 25 MG CAPSULE PO ONE (12:45)
[2017-07-24] MEDS: chlordiazePOXIDE HCL 25 MG CAPSULE PO SCH ×2 (17:22→22:45)
[2017-07-24 20:04] LABS: URINE APPEARANCE TURBID; URINE BILIRUBIN NEGATIVE (<2.0 mg/dL); URINE COLOR YELLOW; URINE GLUCOSE (UA) NEGATIVE (NEGATIVE); URINE KETONE NEGATIVE (NEGATIVE); URINE LEUK ESTERASE NEGATIVE (NEGATIVE); URINE NITRITE NEGATIVE (NEGATIVE); URINE UROBILINOGEN NEGATIVE mg/dL (0.2-1.0)
[2017-07-24 20:23] LABS: URINE PROTEIN 1+ (NEGATIVE)
[2017-07-24 20:25] LABS: URINE MUCUS MANY
[2017-07-24] MEDS: THIAMINE HCL 100 MG TABLET (FP) PO SCH (22:45)
[2017-07-25] MEDS: chlordiazePOXIDE HCL 25 MG CAPSULE PO SCH ×4 (07:22→22:01)
[2017-07-25] MEDS ORDERED: METHADONE HCL 10 MG TABLET (FOR DETOX USE ONLY) PO SCH (10:00)
[2017-07-25] MEDS: PRENATAL VITAMINS W/ FOLIC ACID TABLET (FP) PO SCH (10:30)
[2017-07-25] MEDS: NICOTINE 21 MG/24 HOURS TOPICAL PATCH TD SCH (10:31)
[2017-07-25 10:37] LABS: HEMATOCRIT 41.9 % (35.4-49); HEMOGLOBIN 14.1 GM/dL (11.7-16.9); MCH 29.7 pg (25.7-33.7); MCHC 33.7 g/dl (32.0-35.9); MEAN CELL VOLUME 88.3 fl (80-96); MEAN PLT VOLUME 8.9 fl (7.5-11.1); PLATELET COUNT 193 K/MM3 (134-434); RBC 4.74 M/mm3 (4.00-5.60); RDW 13.7 % (11.9-15.9); WHITE BLOOD COUNT 4.1 K/mm3 (4.0-10.0)
[2017-07-25 10:39] LABS: CHLORIDE 107 mmol/L (98-107); POTASSIUM 4.1 mmol/L (3.5-5.1); SODIUM 141 mmol/L (136-145)
[2017-07-25 10:52] LABS: ALBUMIN 3.3 g/dl (3.4-5.0); ALK PHOS 74 U/L (45-117); ANION GAP 4 (8-16); BILIRUBIN,TOTAL 0.4 mg/dL (0.2-1.0); BLOOD UREA NITROGEN 21 mg/dL (7-18); CALCIUM 8.9 mg/dL (8.5-10.1); CO2 30 mmol/L (21-32); GLUCOSE,RANDOM 83 mg/dL (74-106); SGOT/AST 17 U/L (15-37); SGPT/ALT 17 U/L (12-78); TOT PROT 7.5 g/dl (6.4-8.2)
--- NOTE | 2017-07-25 11:25 | EKG ---
Test Reason : Blood Pressure : / mmHG Vent. Rate : 057 BPM Atrial Rate : 057 BPM P-R Int : 212 ms QRS Dur : 086 ms QT Int : 400 ms P-R-T Axes : 070 078 069 degrees QTc Int : 389 ms SINUS BRADYCARDIA WITH 1ST DEGREE A-V BLOCK OTHERWISE NORMAL ECG WHEN COMPARED WITH ECG OF 10-SEP-2016 12:25, NO SIGNIFICANT CHANGE WAS FOUND Confirmed by DEEJAY JANG, DON ([id number]) on 07/25/2017 11:25:25 AM Referred By: Confirmed By:DON VILLALBA MD
--- NOTE | 2017-07-25 14:54 | PN ---
[facility] CIWA - CIWA Score Nausea/Vomitin Muscle Tremors: 3 Anxiety: 3 Agitation: 3 Paroxysmal Sweats: 2 Orientation: 0-Oriented Tacttile Disturbances: 0-None Auditory Disturbances: 0-None Visual Disturbances: 0-None Headache: 0-None Present CIWA-Ar Total Score: 13 S COWS - Scale Resting Pulse: 0= [place] 80 or Below Sweatin=Flushed/Facial Moisture Restless Observation: 1= Difficult to Sit Still Pupil Size: 0= Normal to Room Light Bone or Joint Aches: 1= Mild Discomfort Runny Nose/ Eye Tearin= Nasal Congestion GI Upset > 30mins: 2= Nausea/Diarrhea Tremor Observation of Outstretched Hands: 2= Slight Tremor Visible Yawning Observation: 0= None Anxiety or Irritability: 2=Irritable/Anxious Goose Flesh Skin: 0=Smooth Skin COWS Score: 11 [facility] Progress Note (SOAP) Subjective: Sleep disturbance Sweats Shakes Diarrhea Objective: 07/25/17 14:41 Sleepy but arousable A & O x 3 Vital Signs Temperature 98.0 F 07/25/17 13:19 Pulse Rate 62 07/25/17 13:19 Respiratory Rate 18 07/25/17 13:19 Blood Pressure 100/68 07/25/17 13:19 O2 Sat by Pulse Oximetry (%) Laboratory Last Values WBC 4.1 K/mm3 (4.0-10.0) D 07/25/17 07:00 RBC 4.74 M/mm3 (4.00-5.60) 07/25/17 07:00 Hgb 14.1 GM/dL (11.7-16.9) 07/25/17 07:00 Hct 41.9 % (35.4-49) 07/25/17 07:00 MCV 88.3 fl (80-96) 07/25/17 07:00 MCH 29.7 pg (25.7-33.7) 07/25/17 07:00 MCHC 33.7 g/dl (32.0-35.9) 07/25/17 07:00 RDW 13.7 % (11.9-15.9) 07/25/17 07:00 Plt Count 193 K/MM3 (134-434) D 07/25/17 07:00 MPV 8.9 fl (7.5-11.1) 07/25/17 07:00 Sodium 141 mmol/L (136-145) 07/25/17 07:00 Potassium 4.1 mmol/L (3.5-5.1) 07/25/17 07:00 Chloride 107 mmol/L (98-107) 07/25/17 07:00 Carbon Dioxide 30 mmol/L (21-32) 07/25/17 07:00 Anion Gap 4 (8-16) L 07/25/17 07:00 BUN 21 mg/dL (7-18) H 07/25/17 07:00 Creatinine 1.0 mg/dL (0.7-1.3) D 07/25/17 07:00 Creat Clearance w eGFR > 60 (>60) 07/25/17 07:00 Random Glucose 83 mg/dL (74-106) 07/25/17 07:00 Calcium 8.9 mg/dL (8.5-10.1) 07/25/17 07:00 Total Bilirubin 0.4 mg/dL (0.2-1.0) 07/25/17 07:00 AST 17 U/L (15-37) D 07/25/17 07:00 ALT 17 U/L (12-78) D 07/25/17 07:00 Alkaline Phosphatase 74 U/L (45-117) 07/25/17 07:00 Total Protein 7.5 g/dl (6.4-8.2) 07/25/17 07:00 Albumin 3.3 g/dl (3.4-5.0) L 07/25/17 07:00 Urine Color Yellow 07/24/17 15:54 Urine Appearance Turbid 07/24/17 15:54 Urine pH 5.0 (5.0-8.0) 07/24/17 15:54 Ur Specific [place] 1.034 (1.001-1.035) 07/24/17 15:54 Urine Protein 1+ (NEGATIVE) H 07/24/17 15:54 Urine Glucose (UA) Negative (NEGATIVE) 07/24/17 15:54 Urine Ketones Negative (NEGATIVE) 07/24/17 15:54 Urine Blood Negative (NEGATIVE) 07/24/17 15:54 Urine Nitrite Negative (NEGATIVE) 07/24/17 15:54 Urine Bilirubin Negative (<2.0 mg/dL) 07/24/17 15:54 Urine Urobilinogen Negative mg/dL (0.2-1.0) 07/24/17 15:54 Ur Leukocyte Esterase Negative (NEGATIVE) 07/24/17 15:54 Urine WBC (Auto) 151 /hpf (3-5) 07/24/17 15:54 Urine RBC (Auto) None /hpf (0-3) 07/24/17 15:54 Urine Mucus Many 07/24/17 15:54 RPR Titer Nonreactive (NONREACTIVE) 07/25/17 07:00 Labs noted, abnormal urinalysis Assessment: 07/25/17 14:54 withdrawal sx Abnormal urinalysis Plan: Continue detox Increase hydration Repeat urinalysis
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
[2017-07-25] MEDS: chlordiazePOXIDE HCL 25 MG CAPSULE PO PRN (20:40)
[2017-07-25] MEDS: THIAMINE HCL 100 MG TABLET (FP) PO SCH (22:00)
[2017-07-26] MEDS: chlordiazePOXIDE HCL 25 MG CAPSULE PO SCH ×2 (05:09→10:27)
[2017-07-26] MEDS: PRENATAL VITAMINS W/ FOLIC ACID TABLET (FP) PO SCH (10:27)
[2017-07-26] MEDS: METHADONE HCL 5 MG TABLET (FOR DETOX USE ONLY) PO SCH (10:27)
[2017-07-26] MEDS: NICOTINE 21 MG/24 HOURS TOPICAL PATCH TD SCH (10:28)
--- NOTE | 2017-07-26 15:56 | PN ---
S CIWA - CIWA Score Nausea/Vomitin-No Nausea/No Vomiting Muscle Tremors: 3 Anxiety: 4-Mod. Anxious/Guarded Agitation: 1-Slight > Activity Paroxysmal Sweats: 3 Orientation: 0-Oriented Tacttile Disturbances: 2-Mild Itch/Numbness/Burn Auditory Disturbances: 0-None Visual Disturbances: 2-Mild Sensitivity Headache: 0-None Present CIWA-Ar Total Score: 15 [facility] COWS - Scale Resting Pulse: 0= [place] 80 or Below Sweatin= Chills/Flushing Restless Observation: 0= Sits Still Pupil Size: 0= Normal to Room Light Bone or Joint Aches: 2= Severe Diffuse Aches Runny Nose/ Eye Tearin= Nasal Congestion GI Upset > 30mins: 2= Nausea/Diarrhea Tremor Observation of Outstretched Hands: 2= Slight Tremor Visible Yawning Observation: 1= 1-2x During Session Anxiety or Irritability: 2=Irritable/Anxious Goose Flesh Skin: 3=Piloerection COWS Score: 14 [facility] Progress Note (SOAP) Subjective: Diarrhea, Stomach Cramping, Tremors, Hot / Cold Sensations, Sweating, Body Aches. Objective: PATIENT A & O X 3, OBSERVED AMBULATING ON UNIT. NO ACUTE DISTRESS. 07/26/17 15:53 Vital Signs Temperature 95.5 F L 07/26/17 13:37 Pulse Rate 58 L 07/26/17 13:37 Respiratory Rate 16 07/26/17 13:37 Blood Pressure 101/57 07/26/17 13:37 O2 Sat by Pulse Oximetry (%) Laboratory Tests 07/24/17 07/25/17 07/25/17 15:54 07:00 07:00 WBC 4.1 D RBC 4.74 Hgb 14.1 Hct 41.9 MCV 88.3 MCH 29.7 MCHC 33.7 RDW 13.7 Plt Count 193 D MPV 8.9 Sodium 141 Potassium 4.1 Chloride 107 Carbon Dioxide 30 Anion Gap 4 L BUN 21 H Creatinine 1.0 D Creat Clearance w eGFR > 60 Random Glucose 83 Calcium 8.9 Total Bilirubin 0.4 AST 17 D ALT 17 D Alkaline Phosphatase 74 Total Protein 7.5 Albumin 3.3 L Urine Color Yellow Urine Appearance Turbid Urine pH 5.0 Ur Specific [place] 1.034 Urine Protein 1+ H Urine Glucose (UA) Negative Urine Ketones Negative Urine Blood Negative Urine Nitrite Negative Urine Bilirubin Negative Urine Urobilinogen Negative Ur Leukocyte Esterase Negative Urine WBC (Auto) 151 Urine RBC (Auto) None Urine Mucus Many RPR Titer 07/25/17 07:00 WBC RBC Hgb Hct MCV MCH MCHC RDW Plt Count MPV Sodium Potassium Chloride Carbon Dioxide Anion Gap BUN Creatinine Creat Clearance w eGFR Random Glucose Calcium Total Bilirubin AST ALT Alkaline Phosphatase Total Protein Albumin Urine Color Urine Appearance Urine pH Ur Specific [place] Urine Protein Urine Glucose (UA) Urine Ketones Urine Blood Urine Nitrite Urine Bilirubin Urine Urobilinogen Ur Leukocyte Esterase Urine WBC (Auto) Urine RBC (Auto) Urine Mucus RPR Titer Nonreactive LABS NOTED. Assessment: 07/26/17 15:54 WITHDRAWAL SYMPTOMS. Plan: CONTINUE DETOX. INCREASE DAILY PO FLUID INTAKE. PRN IMMODIUM FOR DIARRHEA. REPEAT UA FOR ADMISSION ABNORMALITIES.
[2017-07-26] MEDS: chlordiazePOXIDE 5 MG CAPSULE PO SCH ×2 (17:19→22:03)
[2017-07-26] MEDS: chlordiazePOXIDE HCL 25 MG CAPSULE PO PRN (18:43)
--- NOTE | 2017-07-26 19:02 | PN ---
Psychiatric Progress Note Vital Signs: Vital Signs Period Temp Pulse Resp BP Sys/Garcia Pulse Ox Last 24 Hr 95.5 F-97.7 F 47-58 16-20 93-112/57-76 Date of Session: 07/26/17 Chief Complaint:: " I am concerned about my belongings.I am homeless." HPI: Currently detoxing from alcohol,opioid,cocaine and benzodiazepine dependence.Patient is referred by his nurse for crisis intervention due to acting out behavior and threats of violence.Mr Johnson got upset for not being able to contact his fiancee over the telephone.As per nurse, the patient has made the comment that he is ready " to take on anyone in a fight " because he is " fed up " with his personal problems. ROS: Unremarkable.Patient is well groomed,ambulatory and goal-directed.Mr Rodriguez admits to NOT experiencing acute withdrawal symptoms.Detox protocol is well tolerated and effective. Current Medications: Active Medications Generic Name Dose Route Start Last Admin Trade Name Freq PRN Reason Stop Dose Admin Acetaminophen 650 mg 07/24/17 11:18 Tylenol - PO Q4H PRN FEVER Al Hydroxide/Mg Hydroxide 30 ml 07/24/17 11:18 Mylanta Oral Suspension - PO Q6H PRN DYSPEPSIA Chlordiazepoxide HCl 15 mg 07/26/17 17:00 07/26/17 17:19 Librium - PO 07/27/17 11:01 15 mg [id number] TRUPTI Administration Chlordiazepoxide HCl 10 mg 07/27/17 17:00 Librium - PO 07/28/17 11:01 [id number] TRUPTI Chlordiazepoxide HCl 25 mg 07/24/17 11:18 07/26/17 18:43 Librium - PO 07/27/17 11:18 25 mg Q4H PRN Administration WITHDRAWAL(CONT SUBST) Eucalyptus/Menthol/Phenol/Sorbitol 1 each 07/24/17 11:18 Cepastat Lozenge - MM Q4H PRN SORE THROAT Guaifenesin 10 ml 07/24/17 11:18 Robitussin Dm - PO Q6H PRN COUGH Hydroxyzine Pamoate 50 mg 07/24/17 11:18 Vistaril - PO Q4H PRN AGITATION Ibuprofen 400 mg 07/24/17 11:18 Motrin - PO Q6H PRN PAIN LEVEL 4-6 Loperamide HCl 4 mg 07/24/17 11:18 Imodium - PO Q6H PRN DIARRHEA Magnesium Citrate 300 ml 07/24/17 11:18 Citroma - PO Q48H PRN CONSTIPATION Magnesium Hydroxide 30 ml 07/24/17 11:18 Milk Of Magnesia - PO DAILY PRN CONSTIPATION Melatonin 5 mg 07/24/17 22:00 Melatonin PO HS PRN INSOMNIA Methadone HCl 15 mg 07/26/17 10:00 07/26/17 10:27 Dolophine - PO 07/27/17 10:01 15 mg DAILY TRUPTI Administration Methadone HCl 5 mg 07/29/17 06:00 Dolophine - PO 07/29/17 06:01 DAILY@0600 TRUPTI Methadone HCl 10 mg 07/28/17 10:00 Dolophine - PO 07/28/17 10:01 DAILY TRUPTI Nicotine 21 mg 07/25/17 10:00 07/26/17 10:28 Nicoderm Patch - TD Not Given DAILY TRUPTI Nicotine Polacrilex 2 mg 07/24/17 11:18 Nicorette Gum - BUC Q2H PRN NICOTINE REPLACEMENT RX Multivit/Folic Acid/Iron 1 tab 07/25/17 10:00 07/26/17 10:27 Vitamins (Sjr) - PO 1 tab DAILY TRUPTI Administration Pseudoephedrine/Triprolidine 1 combo 07/24/17 11:18 Actifed - PO TID PRN NASAL CONGESTION Thiamine HCl 100 mg 07/24/17 22:00 07/25/17 22:00 Vitamin B1 - PO 100 mg HS TRUPTI Administration Zolpidem Tartrate 10 mg 07/26/17 22:00 Ambien - PO HS PRN INSOMNIA Medication(s) Change(s): Ambien is added to the regimen.Seroquel will NOT be ordered in view of bradycardia. Current Side Effect: No Lab tests ordered: No Lab tests reviewed: Yes Provider note:: Called to evaluate this patient because of agitation and alleged suicidal / homicidal threats.Chart reviewed.Met with the patient.Mr Johnson DENIES feeling suicidal or harboring thoughts/plans to hurt others in the community.ON THE CONTRARY, the patient is concerned with his condition of homelessness and he is contemplating the option of transition to a long-term inpatient rehabilitatiion program.He is doubful about the feasibility of this endeavor from the perspective of a detox program which makes him dysphoric and overly anxious." I am afraid that my counselor may not be able to help in that regard because what I need is a methadone maintenance program + [facility] where I could have the time to work on my housing situation." Patient laments that he " cannot depend on " his female friend whom he describes as careless and ungrateful.He is frightened by the prospect of his imminent discharge from [address] [place] [address] and the reality of " going back straight to the streets ".Mr Johnson admits to feeling anxious,apprehensive over his discharge arrangements and he indicated to this short story writer that he is willing to facilitate the process by making available, to his assigned counselor, telephone numbers of useful resources.Patient offers complaints of insomnia.Reminded of principles of sleep hygiene and discouraged from staying in bed most of the day (usually sedated/ asleep).Clearly medication-seeking as evidenced by a discrete request for " a strong dose of seroquel to knock me out ". Mr Johnson argues that he is " not getting enough methadone ".Risk of use of contraband cannot be dismissed in view of this patient's background.Staff should exert the utmost vigilance.In the meantime, this patient shows no clinical evidence of psychosis or an acute depressive episode.His demeanor bears all the hallmarks of a manipulative schema for immediate gratification.Limits need to be set and implemented. This patient remains future-oriented and he is clearly pursuing a well-defined personal agenda (special privileges,more medications,extension of hospital stay, exemption from rules and regulations,manipulation via threats of violence).Mr Johnson responded favorably to this intervention.Calmed down.Patient is allowed to retrieve, under staff's escort, his cellular telephone and collect the desired contacts. If escalation, nursing staff is instructed to activate the option of 911 / EMS + [place] [employer] for emergency transfer to a more suitable setting, the psychiatric emergency department at [facility], in [place]. Total face to face time:: 70 Mental Status Exam - Mental Status Exam Alert and Oriented to: Time, Place, Person Cognitive Function: Good Patient Appearance: Well Groomed Mood: Angry, Nervous, Irritable Affect: Labile Patient Behavior: Cooperative Speech Pattern: Clear Voice Loudness: Normal Thought Process: Goal Oriented Hallucinations: Denies Suicidal Ideation: Denies Homicidal Ideation: Denies Insight/Judgement: Fair Sleep: Well Appetite: Good Muscle strength/Tone: Normal Gait/Station: Normal Psychiatric Treatment Plan - Problem List (1) Personality disorder, unspecified Comment: . (2) Opioid dependence with withdrawal Comment: . (3) Alcohol dependence with uncomplicated withdrawal Comment: . (4) Sedative, hypnotic or anxiolytic dependence with withdrawal, uncomplicated Comment: . (5) Cocaine dependence Qualifiers: Substance use status: uncomplicated Qualified Code(s): F14.20 - Cocaine dependence, uncomplicated Comment: . (6) Nicotine dependence Qualifiers: Nicotine product type: cigarettes Substance use status: in withdrawal Qualified Code(s): F17.213 - Nicotine dependence, cigarettes, with withdrawal Comment: . (7) Substance induced mood disorder Comment: .
[2017-07-26] MEDS ORDERED: ZOLPIDEM TARTRATE 5 MG TABLET PO PRN (22:00)
[2017-07-26] MEDS: THIAMINE HCL 100 MG TABLET (FP) PO SCH (22:04)
[2017-07-26] MEDS: MELATONIN 5 MG TABLETS PO PRN (22:04)
[2017-07-26] MEDS: hydrOXYzine PAMOATE 50 MG CAPSULE (FP) PO PRN (23:14)
[2017-07-27] MEDS: chlordiazePOXIDE 5 MG CAPSULE PO SCH ×2 (07:33→10:41)
[2017-07-27] MEDS: METHADONE HCL 5 MG TABLET (FOR DETOX USE ONLY) PO SCH (10:41)
[2017-07-27] MEDS: PRENATAL VITAMINS W/ FOLIC ACID TABLET (FP) PO SCH (10:41)
[2017-07-27] MEDS: NICOTINE 21 MG/24 HOURS TOPICAL PATCH TD SCH (10:42)
[2017-07-27] MEDS: hydrOXYzine PAMOATE 50 MG CAPSULE (FP) PO PRN (13:02)
--- NOTE | 2017-07-27 13:04 | PN ---
[facility] Progress Note (SOAP) Subjective: C/O ANXIETY,SWEATS,RESTLESSNESS,FATIGUE. PT EXPRESSED INTEREST TO RE-ENROL IN AN [facility] SO HE CAN GO BACK TO A [facility] TREATMENT AGAIN STATING THAT HE IS TIRED OF THE LIFESTYLE AND WANTS TO GET BETTER. Objective: 07/27/17 13:00 Vital Signs 07/27/17 07/27/17 07/27/17 06:26 06:30 07:59 Temperature 97.1 F L 97.2 F L Pulse Rate 61 47 L Respiratory 18 18 18 Rate Blood Pressure 122/78 88/48 07/27/17 09:26 Temperature 96.6 F L Pulse Rate 47 L Respiratory 18 Rate Blood Pressure 99/59 Laboratory Tests 07/24/17 07/25/17 07/25/17 15:54 07:00 07:00 WBC 4.1 D RBC 4.74 Hgb 14.1 Hct 41.9 MCV 88.3 MCH 29.7 MCHC 33.7 RDW 13.7 Plt Count 193 D MPV 8.9 Sodium 141 Potassium 4.1 Chloride 107 Carbon Dioxide 30 Anion Gap 4 L BUN 21 H Creatinine 1.0 D Creat Clearance w eGFR > 60 Random Glucose 83 Calcium 8.9 Total Bilirubin 0.4 AST 17 D ALT 17 D Alkaline Phosphatase 74 Total Protein 7.5 Albumin 3.3 L Urine Color Yellow Urine Appearance Turbid Urine pH 5.0 Ur Specific [place] 1.034 Urine Protein 1+ H Urine Glucose (UA) Negative Urine Ketones Negative Urine Blood Negative Urine Nitrite Negative Urine Bilirubin Negative Urine Urobilinogen Negative Ur Leukocyte Esterase Negative Urine WBC (Auto) 151 Urine RBC (Auto) None Urine Mucus Many RPR Titer Assessment: 07/27/17 13:01 WITHDRAWAL SX Plan: CONTINUE DETOX PT WILL LIKE TO FOLLOW UP WITH HIS COUNSELOR TODAY TO BEGIN PLANNING FOR AFTERCARE.
[2017-07-27] MEDS: chlordiazePOXIDE HCL 10 MG CAPSULE PO SCH ×2 (17:20→22:05)
[2017-07-27] MEDS: THIAMINE HCL 100 MG TABLET (FP) PO SCH (22:05)
[2017-07-27] MEDS: MELATONIN 5 MG TABLETS PO PRN (22:06)
[2017-07-28 06:06] VITALS: BP 95/51; PULSE 57; TEMP 96.1
[2017-07-28] MEDS: chlordiazePOXIDE HCL 10 MG CAPSULE PO SCH (07:41)
[2017-07-28] MEDS ORDERED: METHADONE HCL 10 MG TABLET (FOR DETOX USE ONLY) PO SCH (10:00)
--- NOTE | 2017-07-28 16:29 | PN ---
[facility] Progress Note (SOAP) Subjective: DETOX COMPLETED. PT REFERRED TO [facility] TODAY FOR AFTERCARE ENROLMENT. ALERT O X3. NAD. PT REPORTS HIS PRIMARY CARE PROVIDER [facility]. Objective: 07/28/17 16:28 Vital Signs - 24 hr 07/27/17 07/27/17 07/28/17 17:40 22:03 00:30 Temperature 96.9 F L 96.6 F L Pulse Rate 51 L 52 L Respiratory 16 18 18 Rate Blood Pressure 87/49 101/67 07/28/17 07/28/17 07/28/17 03:30 06:06 06:30 Temperature 96.1 F L Pulse Rate 57 L Respiratory 16 16 18 Rate Blood Pressure 95/51 Laboratory Tests 07/24/17 07/25/17 07/25/17 15:54 07:00 07:00 WBC 4.1 D RBC 4.74 Hgb 14.1 Hct 41.9 MCV 88.3 MCH 29.7 MCHC 33.7 RDW 13.7 Plt Count 193 D MPV 8.9 Sodium 141 Potassium 4.1 Chloride 107 Carbon Dioxide 30 Anion Gap 4 L BUN 21 H Creatinine 1.0 D Creat Clearance w eGFR > 60 Random Glucose 83 Calcium 8.9 Total Bilirubin 0.4 AST 17 D ALT 17 D Alkaline Phosphatase 74 Total Protein 7.5 Albumin 3.3 L Urine Color Yellow Urine Appearance Turbid Urine pH 5.0 Ur Specific [place] 1.034 Urine Protein 1+ H Urine Glucose (UA) Negative Urine Ketones Negative Urine Blood Negative Urine Nitrite Negative Urine Bilirubin Negative Urine Urobilinogen Negative Ur Leukocyte Esterase Negative Urine WBC (Auto) 151 Urine RBC (Auto) None Urine Mucus Many RPR Titer 07/25/17 07:00 WBC RBC Hgb Hct MCV MCH MCHC RDW Plt Count MPV Sodium Potassium Chloride Carbon Dioxide Anion Gap BUN Creatinine Creat Clearance w eGFR Random Glucose Calcium Total Bilirubin AST ALT Alkaline Phosphatase Total Protein Albumin Urine Color Urine Appearance Urine pH Ur Specific [place] Urine Protein Urine Glucose (UA) Urine Ketones Urine Blood Urine Nitrite Urine Bilirubin Urine Urobilinogen Ur Leukocyte Esterase Urine WBC (Auto) Urine RBC (Auto) Urine Mucus RPR Titer Nonreactive Assessment: 07/28/17 16:29 MEDICALLY STABLE Plan: D/C PT TODAY.
--- NOTE | 2017-07-28 16:32 | DS ---
[facility] Detox Discharge Summary Admission Date: 07/24/17 Discharge Date: 07/28/17 - History Present History: Alcohol Dependence, Cocaine Dependence, Opioid Dependence, Sedative Dependence Additional Comments: PT DISCHARGED TODAY TO FOLLOW UP AT [facility] FOR ENROLMENT INTO METHADONE MAINTENANCE PROGRAM. ALERT O X 3. NAD. PT REPORTS HIS PRIMARY CARE PROVIDER IS KAYCE RICHTER IN [facility]. Pertinent Past History: PLEASE SEE DX BELOW - Physical Exam Results Vital Signs: Vital Signs Temperature 96.1 F L 07/28/17 06:06 Pulse Rate 57 L 07/28/17 06:06 Respiratory Rate 18 07/28/17 06:30 Blood Pressure 95/51 07/28/17 06:06 O2 Sat by Pulse Oximetry (%) Pertinent Admission Physical Exam Findings: WITHDRAWAL SX Laboratory Tests 07/24/17 07/25/17 07/25/17 15:54 07:00 07:00 WBC 4.1 D RBC 4.74 Hgb 14.1 Hct 41.9 MCV 88.3 MCH 29.7 MCHC 33.7 RDW 13.7 Plt Count 193 D MPV 8.9 Sodium 141 Potassium 4.1 Chloride 107 Carbon Dioxide 30 Anion Gap 4 L BUN 21 H Creatinine 1.0 D Creat Clearance w eGFR > 60 Random Glucose 83 Calcium 8.9 Total Bilirubin 0.4 AST 17 D ALT 17 D Alkaline Phosphatase 74 Total Protein 7.5 Albumin 3.3 L Urine Color Yellow Urine Appearance Turbid Urine pH 5.0 Ur Specific [place] 1.034 Urine Protein 1+ H Urine Glucose (UA) Negative Urine Ketones Negative Urine Blood Negative Urine Nitrite Negative Urine Bilirubin Negative Urine Urobilinogen Negative Ur Leukocyte Esterase Negative Urine WBC (Auto) 151 Urine RBC (Auto) None Urine Mucus Many RPR Titer 07/25/17 07:00 WBC RBC Hgb Hct MCV MCH MCHC RDW Plt Count MPV Sodium Potassium Chloride Carbon Dioxide Anion Gap BUN Creatinine Creat Clearance w eGFR Random Glucose Calcium Total Bilirubin AST ALT Alkaline Phosphatase Total Protein Albumin Urine Color Urine Appearance Urine pH Ur Specific [place] Urine Protein Urine Glucose (UA) Urine Ketones Urine Blood Urine Nitrite Urine Bilirubin Urine Urobilinogen Ur Leukocyte Esterase Urine WBC (Auto) Urine RBC (Auto) Urine Mucus RPR Titer Nonreactive - Treatment Hospital Course: Detox Protocol Followed, Detoxed Safely, Responded well, Discharged Condition Good, Rehab Referral Accepted Patient has Accepted a Rehab Referral to: [facility] - Medication Discharge Medications: Ambulatory Orders NK [No Known Home Medication] 07/23/17 - Diagnosis (1) Alcohol dependence with uncomplicated withdrawal Status: Acute (2) Nicotine dependence Status: Acute Qualifiers: Nicotine product type: cigarettes Substance use status: in withdrawal Qualified Code(s): F17.213 - Nicotine dependence, cigarettes, with withdrawal (3) Opioid dependence with withdrawal Status: Acute (4) Sedative, hypnotic or anxiolytic dependence with withdrawal, uncomplicated Status: Acute (5) History of seizure Status: Chronic (6) Hepatitis C carrier Status: Chronic (7) Cocaine dependence Status: Acute Qualifiers: Substance use status: uncomplicated Qualified Code(s): F14.20 - Cocaine dependence, uncomplicated (8) History of drug overdose Status: Chronic - AMA Did Patient Leave Against Medical Advice: No
[2017-07-29] MEDS ORDERED: METHADONE HCL 5 MG TABLET (FOR DETOX USE ONLY) PO SCH (06:00)
== END 2017-07-28 09:12 | disposition home or self-care (01) | DRG 773 ==
LOC: YASAS 09:00 → Y3N 11:49
PROVIDERS: ADMIT Surgery; ATTEND Surgery
PROC: HZ2ZZZZ Detoxification Services for Substance Abuse Treatment (ICD-10-PCS; principal; 2017-07-24)
DX: F11.23 Opioid dependence with withdrawal (principal); F10.230 Alcohol dependence with withdrawal, uncomplicated; F13.230 Sedative, hypnotic or anxiolytic dependence with withdrawal, uncomplicated; F14.20 Cocaine dependence, uncomplicated; F17.213 Nicotine dependence, cigarettes, with withdrawal; F60.9 Personality disorder, unspecified; F19.24 Other psychoactive substance dependence with psychoactive substance-induced mood disorder; F41.9 Anxiety disorder, unspecified; B18.2 Chronic viral hepatitis C; M92.52 Juvenile osteochondrosis of tibia tubercle; M92.51 Juvenile osteochondrosis of proximal tibia; R82.90 Unspecified abnormal findings in urine; Z86.59 Personal history of other mental and behavioral disorders; Z86.69 Personal history of other diseases of the nervous system and sense organs; Z87.898 Personal history of other specified conditions
CPT/HCPCS: 36415; 80053; 81003; 81015; 85027; 86593; 93005; 93010

== ENCOUNTER 2018-10-01 08:20 | Inpatient (IN) | payer OTHER | END 2018-10-05 07:25 | disposition home or self-care (01) | LOC: YASAS 08:20 → Y6N 11:13 ==